=== PATIENT | male | born 1945 | race Native Hawaiian/Other Pacific Islander ===

== ENCOUNTER 2018-05-12 19:32 | Emergency (ER) | payer OTHER ==
[~2018-05-12] VITALS: Ht 182.9 cm; Wt 114.3 kg
[2018-05-12 20:00] LABS: PLATELET COUNT 364 K/uL (142-355)
[2018-05-12 20:08] LABS: POTASSIUM 3.9 mmol/L (3.6-5.2)
[2018-05-12 21:06] VITALS: BP 126/66; TEMP 97.9
[2018-05-13] MEDS ORDERED: AMLODIPINE BESYLATE PO (02:27)
[2018-05-13] MEDS ORDERED: EQL ASPIRIN325 MG PO (02:29)
[2018-05-13] MEDS ORDERED: KP FOLIC ACID1 MG PO (02:30)
[2018-05-13] MEDS ORDERED: SEROQUEL100 MG PO (02:31)
[2018-05-13] MEDS ORDERED: TAMSULOSIN0.4 MG PO (02:39)
[2018-05-13] MEDS ORDERED: MEGACE ES PO (02:42)
[2018-05-13] MEDS ORDERED: LIPITOR40 MG PO (02:45)
[2018-05-13] MEDS ORDERED: COZAAR25 MG PO (02:46)
[2018-05-13] MEDS ORDERED: ALPR0.5T24 PO (02:49)
[2018-05-13] MEDS ORDERED: SEROQUEL50 MG PO (02:51)
[2018-05-28] MEDS ORDERED: LIPITOR40 MG PO (17:15)
[2018-05-28] MEDS ORDERED: LOSA50TA PO (17:16)
[2018-05-28] MEDS ORDERED: BUSP5TAB2 PO (17:18)
[2018-05-28] MEDS ORDERED: ARIPIPRAZOLE5 MG PO (17:18)
[2018-05-28] MEDS ORDERED: DONE5TAB PO (17:18)
[2018-05-28] MEDS ORDERED: ESCI10TA PO (17:19)
[2018-05-28] MEDS ORDERED: MEMA5TAB PO (17:19)
[2018-05-28] MEDS ORDERED: MIRALAX3350 N1 PO (17:24)
== END 2018-05-12 21:09 | disposition other institution (70) ==
LOC: ED 19:32
DX: F03.90 Unspecified dementia, unspecified severity, without behavioral disturbance, psychotic disturbance, mood disturbance, and anxiety (principal); Z04.6 Encounter for general psychiatric examination, requested by authority
CPT/HCPCS: 36415; 80053; 81000; 85027; 93005; 99285